=== PATIENT | male | born 1985 | race Two or more races ===

== ENCOUNTER 2019-02-12 08:06 | Emergency (ER) | payer OTHER ==
[2019-02-12 08:29] VITALS: TEMP 97.9; BMI 23.4
[2019-02-12] MEDS ORDERED: SODIUM CHLORIDE 1,000 ML IV STA (08:47)
[2019-02-12] MEDS ORDERED: LORazepam 2 MG/ML SDV VIAL ONE (08:58)
--- NOTE | 2019-02-12 09:01 | PDOC ---
Attending Attestation - Resident Resident Name: BeckiKamar - ED Attending Attestation I have performed the following: I have examined & evaluated the patient, The case was reviewed & discussed with the resident, I agree w/resident's findings & plan, Exceptions are as noted - HPI HPI: 33 yo M no significant PMH presents with headache. He states he woke up with a headache, now resolved. Headache was associated with numbness to L arm, which has been resolving, but not completely back to baseline. Denies weakness. He has been working very long hours recently and has been very stressed. No prior similar symptoms. - Physicial Exam PE: GENERAL: Awake, alert, and fully oriented, in no acute distress HEAD: No signs of trauma EYES: PERRLA, EOMI, sclera anicteric, conjunctiva clear ENT: Auricles normal inspection, hearing grossly normal, nares patent, oropharynx clear without exudates. Moist mucosa NECK: Normal ROM, supple, no lymphadenopathy, JVD, or masses LUNGS: Breath sounds equal, clear to auscultation bilaterally. No wheezes, and no crackles HEART: Regular rate and rhythm, normal S1 and S2, no murmurs, rubs or gallops ABDOMEN: Soft, nontender, normoactive bowel sounds. No guarding, no rebound. No masses EXTREMITIES: Normal range of motion, no edema. No clubbing or cyanosis. No cords, erythema, or tenderness NEUROLOGICAL: Cranial nerves II through XII grossly intact. Normal speech, normal gait. Motor and sensation intact SKIN: Warm, Dry, normal turgor, no rashes or lesions noted. - Medical Decision Making Pt with sensation of numbness to L arm. Sensation to pinprick is intact B/L, however, he does state that the left arm "feels different". Will obtain CTH, labs, and EKG. He was tremulous and anxious on arrival, given small dose of ativan. Suspicion for CVA is very low.
[2019-02-12 09:14] LABS: HEMATOCRIT 45.9 % (35.4-49); HEMOGLOBIN 16.3 GM/dL (11.7-16.9); MCH 30.6 pg (25.7-33.7); MCHC 35.6 g/dl (32.0-35.9); MEAN CELL VOLUME 86.1 fl (80-96); MEAN PLT VOLUME 8.5 fl (7.5-11.1); PLATELET COUNT 238 K/MM3 (134-434); RBC 5.34 M/mm3 (4.00-5.60); RDW 12.9 % (11.9-15.9); WHITE BLOOD COUNT 10.9 K/mm3 (4.0-10.0)
--- NOTE | 2019-02-12 09:22 | PDOC ---
History of Present Illness - General Chief Complaint: Headache Stated Complaint: COLD SYMPTOMS Time Seen by Provider: 02/12/19 08:35 History Source: Patient Exam Limitations: Language Barrier (phone int used - Greenlandic) - History of Present Illness Initial Comments: 02/12/19 09:16 Patient is a 33M with no significant medical history coming in today complaining of headache and left arm numbness that onset suddenly at 0730 today. Patient describes a sudden headache in his occiput that has now resolved. Patient states that he still has numbness in his left arm. Patient denies any limb weakness, facial droop, slurred speech. Endorses feeling anxious. Denies chest pain and shortness of breath. Denies nausea, vomiting, fever, chills. Denies neck pain. Past History - Past Medical History Allergies/Adverse Reactions: Allergies Allergy/AdvReac Type Severity Reaction Status Date / Time No Known Allergies Allergy Verified 02/12/19 08:24 COPD: No - Suicide/Smoking/Psychosocial Hx Smoking History: Former smoker Have you smoked in the past 12 months: Yes If you are a former smoker, when did you quit?: 2 months Information on smoking cessation initiated: No Review of Systems - Review of Systems Able to Perform ROS?: Yes Comments:: 02/12/19 09:18 GENERAL/CONSTITUTIONAL: No fever or chills. No weakness. HEAD, EYES, EARS, NOSE AND THROAT: No change in vision. No sore throat. CARDIOVASCULAR: No chest pain or shortness of breath RESPIRATORY: No cough, wheezing, or hemoptysis. GASTROINTESTINAL: No nausea, vomiting, diarrhea or constipation. GENITOURINARY: No dysuria, frequency, or change in urination. MUSCULOSKELETAL: No joint or muscle swelling or pain. No neck or back pain. SKIN: No rash NEUROLOGIC: +headache, no loss of consciousness, +change in strength/sensation. ENDOCRINE: No increased thirst. No abnormal weight change HEMATOLOGIC/LYMPHATIC: No anemia, easy bleeding, or history of blood clots. ALLERGIC/IMMUNOLOGIC: No hives or skin allergy. *Physical Exam - Vital Signs Last Vital Signs Temp Pulse Resp BP Pulse Ox 97.9 F 72 18 114/72 100 02/12/19 08:21 02/12/19 08:21 02/12/19 08:21 02/12/19 08:21 02/12/19 08:21 - Physical Exam Comments: 02/12/19 09:19 GENERAL: Awake, alert, and fully oriented, all limbs shaking HEAD: No signs of trauma, normocephalic, atraumatic EYES: PERRLA, EOMI, sclera anicteric, conjunctiva clear ENT: Auricles normal inspection, hearing grossly normal, nares patent, oropharynx clear without exudates. Moist mucosa NECK: Normal ROM, supple, no lymphadenopathy, JVD, or masses LUNGS: No distress, speaks full sentences, clear to auscultation bilaterally HEART: Regular rate and rhythm, normal S1 and S2, no murmurs, rubs or gallops, peripheral pulses normal and equal bilaterally. ABDOMEN: Soft, nontender, normoactive bowel sounds. No guarding, no rebound. No masses EXTREMITIES: Normal inspection, Normal range of motion, no edema. No clubbing or cyanosis. NEUROLOGICAL: Cranial nerves II through XII grossly intact. Normal speech, normal gait, no motor deficits, withdraws to pinch on left arm, reports numbness SKIN: Warm, Dry, normal turgor, no rashes or lesions noted. Moderate Sedation - Procedure Monitoring Vital Signs: Procedure Monitoring Vital Signs Temperature 97.9 F 02/12/19 08:21 Pulse Rate 72 02/12/19 08:21 Respiratory Rate 18 02/12/19 08:21 Blood Pressure 114/72 02/12/19 08:21 O2 Sat by Pulse Oximetry (%) 100 02/12/19 08:21 ED Treatment Course - LABORATORY CBC & Chemistry Diagram: 02/12/19 08:57 02/12/19 08:57 - RADIOLOGY Radiology Studies Ordered: Category Date Time Status HEAD CT WITHOUT CONTRAST [CT] Stat CT Scan 02/12/19 08:47 Ordered Medical Decision Making - Medical Decision Making 02/12/19 09:20 Patient is 33M here today with headache and left arm numbness. Vitals normal and stable. Patient shaking in bed. Suspect primary anxiety issue, but will rule out bleed. Will order head ct, cbc, cmp. Will treat with fluids and ativan. No LP needed if normal, within 6 hour window. 02/12/19 09:36 EKG shows NSR with rate of 83. No st elevations/depressions. Normal axis. Normal intervals. No significant t wave abnormalities. 02/12/19 10:[address] normal. CBC/CMP reassuring. Numbness in arm has resolved. Patient has PCP, will dc to outpatient follow up. *DC/Admit/Observation/Transfer Diagnosis at time of Disposition: Headache - Discharge Dispostion Disposition: HOME Condition at time of disposition: Good Decision to Admit order: No - Referrals Referrals: Link Rizo MD [Primary Care Provider] - - Patient Instructions Printed Discharge Instructions: DI for Headache Additional Instructions: Please follow up with your primary care physician this week. Please return if you have any new, worsening or concerning symptoms, especially fever, weakness and increasing pain. - Post Discharge Activity
[2019-02-12 09:30] LABS: ALBUMIN 4.2 g/dl (3.4-5.0); ALK PHOS 52 U/L (45-117); ANION GAP 3 MMOL/L (8-16); BILIRUBIN,TOTAL 0.5 mg/dL (0.2-1); BLOOD UREA NITROGEN 11 mg/dL (7-18); CALCIUM 8.7 mg/dL (8.5-10.1); CHLORIDE 102 mmol/L (98-107); CO2 31 mmol/L (21-32); CREATININE 0.8 mg/dL (0.55-1.3); GLUCOSE,RANDOM 137 mg/dL (74-106); POTASSIUM 4.5 mmol/L (3.5-5.1); SGOT/AST 17 U/L (15-37); SGPT/ALT 21 U/L (13-61); SODIUM 135 mmol/L (136-145); TOT PROT 7.3 g/dl (6.4-8.2)
[2019-02-12 10:55] VITALS: BP 102/66; PULSE 76
--- NOTE | 2019-02-13 10:26 | EKG ---
Test Reason : Blood Pressure : / mmHG Vent. Rate : 083 BPM Atrial Rate : 083 BPM P-R Int : 170 ms QRS Dur : 078 ms QT Int : 358 ms P-R-T Axes : 072 076 052 degrees QTc Int : 420 ms NORMAL SINUS RHYTHM POSSIBLE LEFT ATRIAL ENLARGEMENT BORDERLINE ECG NO PREVIOUS ECGS AVAILABLE Confirmed by JERRI WHITT, ZORAIDA ([id number]) on 02/13/2019 10:25:30 AM Referred By: Confirmed By:ZORAIDA GUTHRIE MD
== END 2019-02-12 10:55 | disposition home or self-care (01) ==
LOC: JER 08:06
PROC: 3E0337Z Introduction of Electrolytic and Water Balance Substance into Peripheral Vein, Percutaneous Approach (ICD-10-PCS; principal; 2019-02-12)
PROC: 3E033NZ Introduction of Analgesics, Hypnotics, Sedatives into Peripheral Vein, Percutaneous Approach (ICD-10-PCS; 2019-02-12)
DX: R51 Headache (principal); F41.9 Anxiety disorder, unspecified
CPT/HCPCS: 36415; 70450-TC; 80053; 85027; 93005; 93010; 96361; 96374; 99283-25; J7030